=== PATIENT | female | born 1975 | race Caucasian/White ===

== ENCOUNTER 2016-12-13 19:20 | Emergency (ER) | payer MEDICAID ==
[2016-12-13] MEDS ORDERED: Azithromycin 250 MG Tab PO ONE (19:21)
[2016-12-13] MEDS ORDERED: methylPREDNISolone Sodium Succinate 125 MG/2 ML SDV IM ONE (19:21)
--- NOTE | 2016-12-13 23:49 | ER ---
CHIEF COMPLAINT: Sore throat. HISTORY OF PRESENT ILLNESS: Clary is a 41-year-old female, who presents to the emergency room with complaints of sore throat. She states that she was having some difficulty swallowing. She does note some bumps on her tongue as well. Does state that she has not had any other cold-like symptoms. She is questioning whether or not she has thrush at this point in time. PAST MEDICAL HISTORY: CURRENT MEDICATIONS: Include: 1. Viibryd 20 mg p.o. daily. 2. Valium 5 mg in the morning. 3. Valium 10 mg in the evening. 4. Ambien 5 mg at bedtime. 5. Flexeril 10 mg as needed. ALLERGIES: INCLUDE TRAZODONE AND AMOXICILLIN. PHYSICAL EXAMINATION: VITAL SIGNS: Blood pressure 121/75, temperature 98.5, pulse 94, and respirations 18. GENERAL: Pleasant and cooperative female. She is sitting comfortably on chair, does not really appear to be in any distress at this point in time. HEENT: Head is normocephalic and atraumatic. Ear canals are clear. There is some ceruminosis present bilaterally; otherwise, tympanic membranes are intact. Nasal mucosa is pink and moist. Oral mucosa is pink and moist. She did have some exudate in the posterior pharynx. There was some mild erythema. I do not see any signs of thrush presently. Tongue appears normal. NECK: Supple. Trachea is midline. No lymphadenopathy is noted. LUNGS: Clear to auscultation. Denied any adventitious sounds. No wheezes, rhonchi, or rales. ASSESSMENT: ACUTE PHARYNGITIS. PLAN: Solu-Medrol 125 mg for discomfort and inflammation along with we will have her take azithromycin 250 mg 2 tablets at night, one tablet days 2 through 5. She may use [id number] Chloraseptic spray. Recommended she drinks plenty of water, keep mouth moist. If symptoms worsen or return or get worsen, she is to return for further evaluation. The patient will be discharged at this time. THERESA /[id number]
[2016-12-14 01:47] VITALS: BP 121/75
== END 2016-12-13 20:05 | disposition home or self-care (01) ==
LOC: CC.ED 19:20
DX: J02.9 Acute pharyngitis, unspecified (principal); Z88.1 Allergy status to other antibiotic agents; Z88.8 Allergy status to other drugs, medicaments and biological substances
CPT/HCPCS: 96372; 99282; A9270-GY; J2930

== ENCOUNTER 2017-04-09 14:41 | Emergency (ER) | payer MEDICAID ==
--- NOTE | 2017-04-09 14:46 | EDM.PDOC ---
ED HPI GENERAL MEDICAL PROBLEM - General Chief Complaint: General Stated Complaint: chest discomfort Time Seen by Provider: 04/09/17 14:44 Source of Information: Reports: Patient History Limitations: Reports: No Limitations - History of Present Illness INITIAL COMMENTS - FREE TEXT/NARRATIVE: This patient is a 41 year old female that presents to the ER. Patient reports that for the past 2 days she has had chest pain, lower back pain. She reports that she has also been anxious, but this does not feel like any panic attacks. 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 She reports that when she does lift items that her chest and back hurt worse. The patient called ahead and said she would come to the ER because she was concerned it was her heart. The patient is fully alert and oriented. Patient denies porter, dizziness, n , v, d, f, soa, urinary/bowel changes. She does report mild generalized abdominal pain. The patient does not appear to be in acute distress. I have ordered cardiac labs, CXR, EKG, Urine. Onset Date: 04/07/17 Duration: Day(s): (2) Location: Reports: Chest Severity: Mild Improves with: Reports: None Worsens with: Reports: Movement Associated Symptoms: Reports: Chest Pain. Denies: Confusion, Cough, cough w sputum, Diaphoresis, Fever/Chills, Headaches, Loss of Appetite, Malaise, Nausea/ Vomiting, Rash, Seizure, Shortness of Breath, Syncope, Weakness Upper Chest Pain Score (Numeric/FACES): 9 - Related Data Allergies Allergy/AdvReac Type Severity Reaction Status Date / Time amoxicillin Allergy Hives Verified 04/09/17 14:46 trazodone Allergy Chest Pain Verified 04/09/17 14:46 Home Meds: Home Meds Vilazodone [Viibryd] 20 mg PO DAILY 04/07/13 [History] Acetaminophen [Tylenol] 325 mg PO Q4HR PRN 10/16/13 [History] Ibuprofen [Advil Migraine] 200 mg PO Q6HR PRN 10/16/13 [History] Zolpidem [Ambien] 5 mg PO BEDTIME PRN 10/24/14 [History] Cyclobenzaprine [Flexeril] 10 mg PO Q8H PRN 12/14/16 [History] ClonazePAM [KlonoPIN] 0.5 mg PO TID PRN 04/09/17 [History] Past Medical History - Past Health History Medical/Surgical History: Denies Medical/Surgical History Other HEENT History: MIGRAINES Other Gastrointestinal History: currently being treated for UTI Other OB/BYN History: CUSTS, 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 Neurological History: Reports: Migraines Psychiatric History: Reports: Anxiety, Depression - Past Surgical History Other HEENT Surgeries/Procedures: rotten teeth Social & Family History - Family History Family Medical History: Noncontributory - Tobacco Use Smoking Status *Q: Current Every Day Smoker Years of Tobacco use: 15 Packs/Tins Daily: 1 Used Tobacco, but Quit: No - Caffeine Use Caffeine Use: Reports: None - Alcohol Use Days Per Week of Alcohol Use: 0 - Recreational Drug Use Recreational Drug Use: No - Living Situation & Occupation Living situation: Reports: Occupation: Unemployed ED ROS GENERAL - Review of Systems Review Of Systems: See Below Constitutional: Reports: No Symptoms HEENT: Reports: No Symptoms Respiratory: Reports: No Symptoms Cardiovascular: Reports: Chest Pain. Denies: Lightheadedness, Palpitations, Syncope Endocrine: Reports: No Symptoms GI/Abdominal: Reports: Abdominal Pain : Reports: No Symptoms Musculoskeletal: Reports: Back Pain Skin: Reports: No Symptoms Neurological: Reports: No Symptoms Psychiatric: Reports: Anxiety Hematologic/Lymphatic: Reports: No Symptoms Immunologic: Reports: No Symptoms ED EXAM, GENERAL - Physical Exam Exam: See Below Exam Limited By: No Limitations General Appearance: Alert, WD/WN, No Apparent Distress, Anxious Eye Exam: Bilateral Eye: Normal Inspection Ears: Normal External Exam Ear Exam: Bilateral Ear: Auricle Normal Nose: Normal Inspection Throat/Mouth: Normal Inspection, Normal Lips, Normal Teeth (some decay), Normal Gums, Normal Oropharynx, Normal Voice, No Airway Compromise Head: Atraumatic, Normocephalic Neck: Normal Inspection, Supple, Non-Tender, Full Range of Motion Respiratory/Chest: No Respiratory Distress, Lungs Clear, Normal Breath Sounds, No Accessory Muscle Use, Chest Non-Tender Cardiovascular: Normal Peripheral Pulses, Regular Rate, Rhythm, No Edema, No Gallop, No JVD, No Murmur, No Rub Peripheral Pulses: 2+: Radial (L), Radial (R), Posterior Tibial (L), Posterior Tibial (R) GI/Abdominal: Normal Bowel Sounds, Soft, No Organomegaly, No Distention, No Abnormal Bruit, No Mass, Pelvis Stable, Tender (mild generalized. ) Back Exam: Normal Inspection, Full Range of Motion, CVA Tenderness (L), CVA Tenderness (R), Paraspinal Tenderness. No: Decreased Range of Motion, Muscle Spasm, Vertebral Tenderness Extremities: Normal Inspection, Normal Range of Motion, Non-Tender, No Pedal Edema, Normal Capillary Refill Neurological: Alert, Oriented Psychiatric: Normal Mood, Anxious Skin Exam: Warm, Dry, Intact, Normal Color, No Rash Lymphatic: No Adenopathy EKG INTERPRETATION EKG Date: 04/09/17 Time: 14:48 Rhythm: NSR Rate (Beats/Min): 86 [place]: Normal P-Wave: Present QRS: Normal ST-T: Normal QT: Normal Comparison: NA - No Prior EKG Course - Vital Signs Last Recorded V/S: Last Vital Signs Temp 97.2 F 04/09/17 14:42 Pulse 85 04/09/17 14:42 Resp 20 04/09/17 14:42 BP 130/84 04/09/17 14:42 Pulse Ox 100 04/09/17 14:42 - Orders/Labs/Meds Orders: Active Orders 24 hr Category Date Time Status Chest 2V [CR] Stat Exams 04/09/17 14:24 Taken Labs: Laboratory Tests 04/09/17 04/09/17 04/09/17 Range/Units 14:50 14:50 14:58 WBC 6.6 (5.0-10.0) 10^3/uL RBC 3.83 L (4.00-5.50) 10^6/uL Hgb 11.8 L (12.0-16.0) g/dL Hct 35.2 L (37.0-47.0) % MCV 91.9 (82.0-94.0) fL MCH 30.8 (27.0-32.0) pg MCHC 33.5 (33.0-38.0) g/dL RDW Coeff of [place] 12.7 (11.0-15.0) % Plt Count 330 (150-400) 10^3/uL Neut % (Auto) 54.6 (35-85) % Lymph % (Auto) 38.8 (10-55) % [place] % (Auto) 5.2 (0-16) % Eos % (Auto) 0.9 (0-5) % Baso % (Auto) 0.5 (0-3) % Neut # (Auto) 3.58 (1.80-7.00) 10^3/uL Lymph # (Auto) 2.54 (1.00-4.80) 10^3/uL [place] # (Auto) 0.34 (0.00-0.80) 10^3/uL Eos # (Auto) 0.06 (0.00-0.45) 10^3/uL Baso # (Auto) 0.03 10^3/uL Sodium 144 (136-145) mEq/L Potassium 3.1 L (3.5-5.0) mEq/L Chloride 108 H (98-106) mEq/L Carbon Dioxide 25 (21-32) mmol/L BUN 9 (7-18) mg/dL Creatinine 1.0 (0.6-1.0) mg/dL Est Cr Clr Drug Dosing 71.57 mL/min Estimated GFR (MDRD) > 60 (>=60) mL/min Glucose 93 (75-99) mg/dL Calcium 8.4 (8.4-10.1) mg/dL Total Bilirubin 0.2 (0.0-1.0) mg/dL AST 18 (15-37) U/L ALT 23 (12-78) U/L Alkaline Phosphatase 78 (46-116) U/L Creatine Kinase 137 (21-215) U/L Troponin I < 0.017 (0.00-0.06) ng/mL Total Protein 7.3 (6.4-8.2) g/dL Albumin 4.1 (3.4-5.0) g/dL Urine Color (YELLOW) Urine Appearance (CLEAR) Urine pH (4.5-8.0) Ur Specific [place] (1.003-1.020) Urine Protein (NEGATIVE) mg/dL Urine Glucose (UA) (NEGATIVE) mg/dL Urine Ketones (NEGATIVE) mg/dL Urine Occult Blood (NEGATIVE) Urine Nitrite (NEGATIVE) Urine Bilirubin (NEGATIVE) Urine Urobilinogen (0.2-1.0) EU/dL Ur Leukocyte Esterase (NEGATIVE) Urine RBC (0-5) /HPF Urine WBC (0-5) /HPF Ur Squamous Epith Cells (NOT SEEN) /HPF Urine Bacteria (NOT SEEN) /HPF Urine HCG, Qual Negative 04/09/17 Range/Units 14:58 WBC (5.0-10.0) 10^3/uL RBC (4.00-5.50) 10^6/uL Hgb (12.0-16.0) g/dL Hct (37.0-47.0) % MCV (82.0-94.0) fL MCH (27.0-32.0) pg MCHC (33.0-38.0) g/dL RDW Coeff of [place] (11.0-15.0) % Plt Count (150-400) 10^3/uL Neut % (Auto) (35-85) % Lymph % (Auto) (10-55) % [place] % (Auto) (0-16) % Eos % (Auto) (0-5) % Baso % (Auto) (0-3) % Neut # (Auto) (1.80-7.00) 10^3/uL Lymph # (Auto) (1.00-4.80) 10^3/uL [place] # (Auto) (0.00-0.80) 10^3/uL Eos # (Auto) (0.00-0.45) 10^3/uL Baso # (Auto) 10^3/uL Sodium (136-145) mEq/L Potassium (3.5-5.0) mEq/L Chloride (98-106) mEq/L Carbon Dioxide (21-32) mmol/L BUN (7-18) mg/dL Creatinine (0.6-1.0) mg/dL Est Cr Clr Drug Dosing mL/min Estimated GFR (MDRD) (>=60) mL/min Glucose (75-99) mg/dL Calcium (8.4-10.1) mg/dL Total Bilirubin (0.0-1.0) mg/dL AST (15-37) U/L ALT (12-78) U/L Alkaline Phosphatase (46-116) U/L Creatine Kinase (21-215) U/L Troponin I (0.00-0.06) ng/mL Total Protein (6.4-8.2) g/dL Albumin (3.4-5.0) g/dL Urine Color Yellow (YELLOW) Urine Appearance Clear (CLEAR) Urine pH 6.0 (4.5-8.0) Ur Specific [place] 1.010 (1.003-1.020) Urine Protein Negative (NEGATIVE) mg/dL Urine Glucose (UA) Negative (NEGATIVE) mg/dL Urine Ketones Negative (NEGATIVE) mg/dL Urine Occult Blood Negative (NEGATIVE) Urine Nitrite Negative (NEGATIVE) Urine Bilirubin Negative (NEGATIVE) Urine Urobilinogen 0.2 (0.2-1.0) EU/dL Ur Leukocyte Esterase Negative (NEGATIVE) Urine RBC Not seen (0-5) /HPF Urine WBC Not seen (0-5) /HPF Ur Squamous Epith Cells Moderate H (NOT SEEN) /HPF Urine Bacteria Few H (NOT SEEN) /HPF Urine HCG, Qual Meds: Medications Discontinued Medications Generic Name Dose Route Start Last Admin Trade Name Freq PRN Reason Stop Dose Admin Hydrocodone Bitart/Acetaminophen 1 tab 04/09/17 15:12 [place] 325-5 Mg PO 04/09/17 15:13 ONETIME ONE Potassium Chloride 40 meq 04/09/17 15:12 Klor-Con 10 PO 04/09/17 15:13 ONETIME ONE - Radiology Interpretation Free Text/Narrative:: CXR: No infiltrate, no pulmonary edema, no cardiomegaly. Departure - Departure Time of Disposition: 15:14 Disposition: Home, Self-Care 01 Condition: Good Clinical Impression: Atypical chest pain, Hypokalemia - Discharge Information Instructions: Nonspecific Chest Pain, [id number], Hypokalemia Forms: ED Department Discharge Additional Instructions: Followup with your primary care provider Return to the ER for emergencies Potassium Chloride 20meq 1 pill once a day #30 no refill Increase fluids Eat Bananas - My Orders Last 24 Hours: My Active Orders 04/09/17 14:24 Chest 2V [CR] Stat - Assessment/Plan Last 24 Hours: My Active Orders 04/09/17 14:24 Chest 2V [CR] Stat Plan: PLEASE SEE RN NOTE FOR PFSH.
[2017-04-09 14:56] VITALS: BP 130/84
[2017-04-09 15:11] LABS: CHLORIDE,CL 108 mEq/L (98-106); SODIUM,NA 144 mEq/L (136-145)
[2017-04-09] MEDS ORDERED: Acetaminophen/HYDROcodone 325-5 MG Tab PO ONE (15:12)
[2017-04-09] MEDS ORDERED: Potassium Chloride 10 MEQ Tab.ER PO ONE (15:12)
== END 2017-04-09 15:26 | disposition home or self-care (01) ==
LOC: CC.ED 14:41
DX: R07.89 Other chest pain (principal); E87.6 Hypokalemia; Z88.1 Allergy status to other antibiotic agents; Z88.5 Allergy status to narcotic agent; F41.9 Anxiety disorder, unspecified; F32.9 Major depressive disorder, single episode, unspecified; F17.210 Nicotine dependence, cigarettes, uncomplicated
CPT/HCPCS: 36415; 71020; 80053; 81001; 81025; 82550; 84484; 85025; 93005; 99284; A9270

== ENCOUNTER 2017-09-18 09:04 | Emergency (ER) | payer MEDICAID ==
[2017-09-18] MEDS ORDERED: Ketorolac 60 MG/2 ML SDV IM ONE (09:22)
--- NOTE | 2017-09-18 09:28 | EDM.PDOC ---
ED HPI GENERAL MEDICAL PROBLEM - General Chief Complaint: Headache Stated Complaint: neck pain Time Seen by Provider: 09/18/17 09:05 Source of Information: Reports: Patient, Old Records History Limitations: Reports: No Limitations - History of Present Illness Onset: Gradual Onset Date: 09/16/17 Duration: Other (no trauma, reports she woke up with muscle pain in her RIGHT neck) Quality: Reports: Ache, Throbbing Severity: Moderate Associated Symptoms: Reports: No Other Symptoms - Related Data Allergies Allergy/AdvReac Type Severity Reaction Status Date / Time amoxicillin Allergy Hives Verified 09/18/17 09:12 trazodone Allergy Chest Pain Verified 09/18/17 09:12 Home Meds: Home Meds Vilazodone [Viibryd] 20 mg PO DAILY 04/07/13 [History] Acetaminophen [Tylenol] 325 mg PO Q4HR PRN 10/16/13 [History] Ibuprofen [Advil Migraine] 200 mg PO Q6HR PRN 10/16/13 [History] Zolpidem [Ambien] 5 mg PO BEDTIME PRN 10/24/14 [History] Cyclobenzaprine [Flexeril] 10 mg PO Q8H PRN 12/14/16 [History] ClonazePAM [KlonoPIN] 0.5 mg PO TID PRN 04/09/17 [History] Gabapentin [Neurontin] 300 mg PO TID 09/18/17 [History] Past Medical History - Past Health History Medical/Surgical History: Denies Medical/Surgical History Other HEENT History: MIGRAINES Other Gastrointestinal History: currently being treated for UTI Other OB/BYN History: CUSTS, 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 Neurological History: Reports: Migraines Psychiatric History: Reports: Anxiety, Depression - Past Surgical History Other HEENT Surgeries/Procedures: rotten teeth Social & Family History - Family History Family Medical History: Noncontributory - Caffeine Use Caffeine Use: Reports: None - Living Situation & Occupation Living situation: Reports: Occupation: Unemployed ED ROS GENERAL - Review of Systems Review Of Systems: See Below Constitutional: Reports: No Symptoms HEENT: Reports: No Symptoms Respiratory: Reports: No Symptoms Cardiovascular: Reports: No Symptoms GI/Abdominal: Reports: No Symptoms Musculoskeletal: Reports: Neck Pain Skin: Reports: No Symptoms Neurological: Reports: No Symptoms ED EXAM, GENERAL - Physical Exam Exam: See Below Exam Limited By: No Limitations General Appearance: Alert, WD/WN, No Apparent Distress Head: Atraumatic, Normocephalic Neck: Other (palpable spasm to the RIGHT posterior neck. no stepoff, deformity, evidence of trauma) Respiratory/Chest: No Respiratory Distress, Lungs Clear, Normal Breath Sounds, No Accessory Muscle Use, Chest Non-Tender Cardiovascular: Normal Peripheral Pulses, Regular Rate, Rhythm, No Edema, No Gallop, No JVD, No Murmur, No Rub Back Exam: Normal Inspection, Full Range of Motion, NT Extremities: Normal Inspection, Normal Range of Motion, Non-Tender, Normal Capillary Refill, No Pedal Edema Neurological: Alert, Oriented, CN II-XII Intact, Normal Cognition, Normal Gait, No Motor/Sensory Deficits Course - Orders/Labs/Meds Meds: Medications Discontinued Medications Generic Name Dose Route Start Last Admin Trade Name Diego PRN Reason Stop Dose Admin Ketorolac Tromethamine 60 mg 09/18/17 09:22 09/18/17 09:27 Toradol IM 09/18/17 09:23 60 mg ONETIME ONE Administration Departure - Departure Time of Disposition: 09:25 Disposition: Home, Self-Care 01 Clinical Impression: Neck pain - Discharge Information Instructions: Musculoskeletal Pain Forms: ED Department Discharge - Assessment/Plan Assessment:: Exam reveals a muscle spasm in the RIGHT posterior neck. the patient is currently Rx for cyclobenzaprine and is taking them regularly at home. She repeatedly requests narcotic pain medication here in the ED. I counseled her that narcotics are not given in the ED without an objective finding. She is given 1x dose of IM toradol which somewhat ameliorates her pain. She is advised to rest, hydrate, take all home meds as directed, fu with PCP in 3-5 days for repeat exam, go to closest ED if change or worse. Patient reports understanding and agreement with plan. DC home stable.
[2017-09-18 10:19] VITALS: BP 98/68
== END 2017-09-18 09:35 | disposition home or self-care (01) ==
LOC: CC.ED 09:04
DX: M62.838 Other muscle spasm (principal); M54.2 Cervicalgia; Z88.1 Allergy status to other antibiotic agents; Z88.8 Allergy status to other drugs, medicaments and biological substances; Z79.899 Other long term (current) drug therapy
CPT/HCPCS: 96372; 99283; J1885

== ENCOUNTER 2018-10-20 19:13 | Emergency (ER) | payer MEDICAID ==
[2018-10-20 19:17] VITALS: BP 108/77
--- NOTE | 2018-10-20 19:40 | EDM.PDOC ---
ED HPI GENERAL MEDICAL PROBLEM - General Chief Complaint: ENT Problem Stated Complaint: SORE THROAT Time Seen by Provider: 10/20/18 19:14 Source of Information: Reports: Patient History Limitations: Reports: No Limitations - History of Present Illness INITIAL COMMENTS - FREE TEXT/NARRATIVE: This patient is a 42 year old female that presents to the ER for nonemergency. Patient reports for 1 week having burning sensation in her throat and at times she feels like food gets stuck when eating. Patient denies injury, porter, dizziness , n, v, d, f, oral rash, oral sores, cp, soa, abd pain, chest burning sensation. Onset Date: 10/13/18 Duration: Week(s): (1) Location: Reports: Other (sore throat) Quality: Reports: Other (burning) Severity: Mild Worsens with: Reports: Eating Associated Symptoms: Denies: Confusion, Chest Pain, Cough, cough w sputum, Diaphoresis, Fever/Chills, Headaches, Loss of Appetite, Malaise, Nausea/Vomiting , Rash, Seizure, Shortness of Breath, Syncope, Weakness Throat Pain Score (Numeric/FACES): 7 - Related Data Allergies Allergy/AdvReac Type Severity Reaction Status Date / Time amoxicillin Allergy Hives Verified 10/20/18 19:17 trazodone Allergy Chest Pain Verified 10/20/18 19:17 Home Meds: Home Meds Acetaminophen [Tylenol] 325 mg PO Q4HR PRN 10/16/13 [History] Ibuprofen [Advil Migraine] 200 mg PO Q6HR PRN 10/16/13 [History] Zolpidem [Ambien] 5 mg PO BEDTIME PRN 10/24/14 [History] Cyclobenzaprine [Flexeril] 10 mg PO Q8H PRN 12/14/16 [History] ClonazePAM [KlonoPIN] 0.5 mg PO TID PRN 04/09/17 [History] Gabapentin [Neurontin] 300 mg PO TID 09/18/17 [History] Venlafaxine HCl [Venlafaxine ER] 150 mg PO DAILY 10/20/18 [History] Past Medical History - Past Health History Medical/Surgical History: Denies Medical/Surgical History Other HEENT History: MIGRAINES Gastrointestinal History: Reports: None Other Gastrointestinal History: currently being treated for UTI Genitourinary History: Reports: None 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, 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 Musculoskeletal History: Reports: Back Pain, Chronic Neurological History: Reports: Migraines Psychiatric History: Reports: Anxiety, Depression - Past Surgical History HEENT Surgical History: Reports: Other (See Below) Other HEENT Surgeries/Procedures: rotten teeth GI Surgical History: Reports: Cholecystectomy Female Surgical History: Reports: Tubal Ligation Neurological Surgical History: Reports: None Musculoskeletal Surgical History: Reports: Other (See Below) Other Musculoskeletal Surgeries/Procedures:: tendon surgery to right ankle Social & Family History - Family History Family Medical History: Noncontributory - Tobacco Use Smoking Status *Q: Current Every Day Smoker Years of Tobacco use: 21 Packs/Tins Daily: 1 - Caffeine Use Caffeine Use: Reports: Soda - Recreational Drug Use Recreational Drug Use: No - Living Situation & Occupation Living situation: Reports: Occupation: Unemployed ED ROS ENT - Review of Systems Review Of Systems: See Below Constitutional: Reports: No Symptoms HEENT: Reports: Throat Pain (burning, food feels like gets stuck sometimes when eating. ). Denies: Dental Pain, Ear Discharge, Ear Pain, Eye Discharge, Hearing Loss, Nosebleed, Nose Pain, Rhinitis, Sinus Problem, Vertigo, Vision Change Respiratory: Reports: No Symptoms Cardiovascular: Reports: No Symptoms Endocrine: Reports: No Symptoms GI/Abdominal: Reports: No Symptoms : Reports: No Symptoms Musculoskeletal: Reports: No Symptoms Skin: Reports: No Symptoms Neurological: Reports: No Symptoms Psychiatric: Reports: No Symptoms Hematologic/Lymphatic: Reports: No Symptoms Immunologic: Reports: No Symptoms ED EXAM, ENT - Physical Exam Exam: See Below Exam Limited By: No Limitations General Appearance: Alert, WD/WN, No Apparent Distress Eye Exam: Bilateral Eye: Normal Inspection, PERRL Ears: Normal External Exam, Normal Canal, Hearing Grossly Normal, Normal TMs Nose: Normal Inspection, Normal Mucousa, No Blood Mouth/Throat: Normal Inspection, Normal Gums, Normal Lips, Normal Teeth, Pharyngeal Erythema, Throat Pain. No: Bleeding, Dental Abcess, Dental Pain, Dental Tenderness, Dental Trauma, Drooling, Dry Mucous Membrane, Gum Swelling, Hoarse Voice, Lip Swelling, Lip Ulcers, Muffled Voice, Oral Ulcers, Perioral Cyanosis, Peritonsillar Mass, Throat Swelling, Tongue Swelling, Tonsillar Erythema, Tonsillar Exudates, Tonsillar Swelling, Trismus, Uvular Deviation, Uvular Edema Head: Atraumatic, Normocephalic Neck: Normal Inspection, Supple, Non-Tender, Full Range of Motion, Tender Midline. No: Limited Range of Motion, Lymphadenopathy (L), Lymphadenopathy (R) , Tender Lateral, Thyromegaly Respiratory/Chest: No Respiratory Distress, Lungs Clear, Normal Breath Sounds, No Accessory Muscle Use, Chest Non-Tender Cardiovascular: Normal Peripheral Pulses, Regular Rate, Rhythm, No Edema, No Gallop, No JVD, No Murmur, No Rub Extremities: Normal Inspection, Normal Range of Motion, Non-Tender, No Pedal Edema, Normal Capillary Refill Neurological: Alert, Oriented, Normal Cognition, Normal Gait, No Motor/Sensory Deficits Psychiatric: Normal Affect, Normal Mood, Other Skin: Warm, Intact, Normal Color, No Rash Lymphatic: No Adenopathy Course - Vital Signs Last Recorded V/S: Last Vital Signs Temp 99.6 F 10/20/18 19:14 Pulse 102 H 10/20/18 19:14 Resp 18 10/20/18 19:14 BP 108/77 10/20/18 19:14 Pulse Ox 97 10/20/18 19:14 Departure - Departure Time of Disposition: 20:05 Disposition: Home, Self-Care 01 Condition: Good Clinical Impression: Sore throat - Discharge Information *PRESCRIPTION DRUG MONITORING PROGRAM REVIEWED*: No *COPY OF PRESCRIPTION DRUG MONITORING REPORT IN PATIENT ODILIA: No Instructions: Sore Throat, [id number] Forms: ED Department Discharge Additional Instructions: Followup with primary care provider Return to the ER for worsening of condition or any emergent concerns Increase fluids May use over the counter Chloraseptic as needed Tylenol or IbuProfen as needed for pain - Assessment/Plan Plan: PLEASE SEE RN NOTE FOR PFSH.
== END 2018-10-20 20:17 | disposition home or self-care (01) ==
LOC: CC.ED 19:13
DX: J02.9 Acute pharyngitis, unspecified (principal); F41.9 Anxiety disorder, unspecified; F32.9 Major depressive disorder, single episode, unspecified; F17.210 Nicotine dependence, cigarettes, uncomplicated; Z88.1 Allergy status to other antibiotic agents; Z88.5 Allergy status to narcotic agent; Z79.899 Other long term (current) drug therapy
CPT/HCPCS: 87430; 99283

== ENCOUNTER 2019-12-28 14:05 | Emergency (ER) | payer MEDICAID, OTHER ==
[2019-12-28] MEDS ORDERED: Ondansetron 4 MG Tab.DIS PO ONE ×2 (14:06→16:06)
--- NOTE | 2019-12-28 14:26 | EDM.PDOC ---
ED HPI GENERAL MEDICAL PROBLEM - General Chief Complaint: Headache Stated Complaint: Headache Time Seen by Provider: 12/28/19 14:15 Source of Information: Reports: Patient History Limitations: Reports: No Limitations - History of Present Illness INITIAL COMMENTS - FREE TEXT/NARRATIVE: Patient reports that last night she started with a tension headache that she normally gets. She reports then today she was on a ladder and was up on the lift on the second step a couple of feet and lost footing and fell backwards. Patient reports that she landed on her back and back of head. Patient reports that when she fell she was dazed, dizzy, and nauseated. She reports that she vomited x1. She reports that her tension headache was now worse and that she came to the ER because of the vomiting. The patient is alert and oriented. She reports having back of the headache, nausea, vomiting x1, dizziness, neck pain, central upper back pain. Denies urinary/bowel incontinence, known loc, vision changes. Onset: Today Onset Date: 12/28/19 Onset Time: 14:00 Duration: Minutes: (20) Location: Reports: Head, Neck, Back Severity: Moderate Improves with: Reports: None Worsens with: Reports: None Associated Symptoms: Reports: Headaches, Nausea/Vomiting. Denies: Confusion, Chest Pain, Cough, cough w sputum, Diaphoresis, Fever/Chills, Loss of Appetite, Malaise, Rash, Seizure, Shortness of Breath, Syncope, Weakness Occipital Head Pain Score (Numeric/FACES): 8 - Related Data Allergies Allergy/AdvReac Type Severity Reaction Status Date / Time amoxicillin Allergy Hives Verified 12/28/19 14:14 trazodone Allergy Chest Pain Verified 12/28/19 14:14 Home Meds: Home Meds Acetaminophen [Tylenol] 325 mg PO Q4HR PRN 10/16/13 [History] Ibuprofen [Advil Migraine] 800 mg PO Q6HR PRN 10/16/13 [History] Zolpidem [Ambien] 10 mg PO BEDTIME PRN 10/24/14 [History] Cyclobenzaprine [Flexeril] 10 mg PO BID PRN 12/14/16 [History] busPIRone [Buspar] 20 mg PO BID 12/28/19 [History] hydrOXYzine HCL [Hydroxyzine HCl] 50 mg PO TID PRN 12/28/19 [History] Past Medical History - Past Health History Medical/Surgical History: Denies Medical/Surgical History Other HEENT History: MIGRAINES Gastrointestinal History: Reports: None Other Gastrointestinal History: currently being treated for UTI Genitourinary History: Reports: None 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: CUSTS, 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 Musculoskeletal History: Reports: Back Pain, Chronic Neurological History: Reports: Migraines Psychiatric History: Reports: Anxiety, Depression - Past Surgical History HEENT Surgical History: Reports: Other (See Below) Other HEENT Surgeries/Procedures: rotten teeth GI Surgical History: Reports: Cholecystectomy Female Surgical History: Reports: Tubal Ligation Neurological Surgical History: Reports: None Musculoskeletal Surgical History: Reports: Other (See Below) Other Musculoskeletal Surgeries/Procedures:: tendon surgery to right ankle Social & Family History - Family History Family Medical History: Noncontributory - Caffeine Use Caffeine Use: Reports: Soda - Living Situation & Occupation Living situation: Reports: Occupation: Unemployed ED ROS GENERAL - Review of Systems Review Of Systems: See Below Constitutional: Reports: No Symptoms HEENT: Reports: No Symptoms Respiratory: Reports: No Symptoms Cardiovascular: Reports: No Symptoms Endocrine: Reports: No Symptoms GI/Abdominal: Reports: Nausea, Vomiting (x1) : Reports: No Symptoms Musculoskeletal: Reports: Neck Pain, Back Pain (upper and mid) Skin: Reports: No Symptoms Neurological: Reports: Dizziness, Headache. Denies: Confusion, Numbness, Pre- Existing Deficit, Seizure, Syncope, Tingling, Tremors, Trouble Speaking, Difficulty Walking, Weakness, Change in Speech, Gait Disturbance Psychiatric: Reports: No Symptoms Hematologic/Lymphatic: Reports: No Symptoms Immunologic: Reports: No Symptoms ED EXAM, HEAD INJURY - Physical Exam Exam: See Below Exam Limited By: No Limitations General Appearance: Alert, WD/WN, No Apparent Distress, Anxious Head: Atraumatic, Normocephalic. No: Scalp Lacerations, Scalp Swelling, Scalp Abrasions, Scalp Ecchymosis, Scalp Hematoma, Scalp Tenderness, Active Bleeding, Lizarraga's Sign, Flap, Facial Abrasions, Facial Ecchymosis, Facial Lacerations, Facial Swelling, Sinus Tenderness, Facial Tenderness, Raccoon Eyes Nexus Criteria: Posterior, Midline Cervical Tenderness. No: Evidence of Intoxication, Altered Level of Consciousness, Focal Neurological Deficit, Painful Distraction Injuries Eyes: Bilateral Eye: EOMI, Normal Inspection, PERRL Ears: Normal External Exam, Normal Canal, Hearing Grossly Normal, Normal TMs Nose: Normal Inspection, Normal Mucousa, No Blood Throat/Mouth: Normal Inspection, Normal Lips, Normal Teeth, Normal Gums, Normal Oropharynx, Normal Voice, No Airway Compromise Neck: Full Range of Motion, Normal Alignment, Normal Inspection, Painful Range of Motion, Paraspinous Muscle Tender, Spinous Processes Tender, Tender Midline, Other (C-Collar applied. No step offs. ). No: Limited Range of Motion, Stiff Neck, Tender Lateral Respiratory: No Respiratory Distress, Lungs Clear, Normal Breath Sounds, No Accessory Muscle Use, Chest Non-Tender Cardiovascular: Normal Peripheral Pulses, Regular Rate, Rhythm, No Edema, No Gallop, No JVD, No Murmur, No Rub GI/Abdominal Exam: Soft, Non-Tender Back Exam: Normal Inspection, Full Range of Motion Extremities: Normal Inspection, Normal Range of Motion, Non-Tender, No Pedal Edema, Normal Capillary Refill Neurologic: No Motor/Sensory Deficits, Alert, Normal Mood/Affect, Oriented x 3 Skin: Normal Color, Warm/Dry - Neel Coma Score Best Eye Response ([place]): (4) Open Spontaneously Best Verbal Response ([place]): (5) Oriented Best Motor Response ([place]): (6) Obeys Commands Course - Vital Signs Last Recorded V/S: Last Vital Signs Temp 98 F 12/28/19 14:19 Pulse 113 H 12/28/19 14:19 Resp 18 12/28/19 14:19 BP 144/79 H 12/28/19 14:19 Pulse Ox 99 12/28/19 14:19 - Orders/Labs/Meds Orders: Active Orders 24 hr Category Date Time Status C Collar Applied [Spinal Immobilization] [RC] Care 12/28/19 14:27 Active ASDIRECTED Cervical Spine wo Cont [CT] Stat Exams 12/28/19 14:25 Taken Head wo Cont [CT] Stat Exams 12/28/19 14:25 Ordered Thoracic Spine 3V [CR] Stat Exams 12/28/19 14:26 Taken Ondansetron [Take Home: Ondansetron ODT 4 MG, 2 Tab Med 12/28/19 16:06 Once Pack] 2 packet PO ONETIME ONE Ondansetron [Zofran ODT] Med 12/28/19 16:06 Once 4 mg PO ONETIME ONE Medication Orders Ondansetron HCl (Zofran Odt) 4 mg PO ONETIME ONE Stop: 12/28/19 16:07 Meds: Medications Generic Name Dose Route Start Last Admin Trade Name Diego PRN Reason Stop Dose Admin Ondansetron HCl 4 mg 12/28/19 16:06 Zofran Odt PO 12/28/19 16:07 ONETIME ONE - Radiology Interpretation Free Text/Narrative:: Thoracic Xray: No fractures seen. Head/Cervical CT: No acute findings CT Results Date: 12/28/19 CT Results Time: 15:55 - Re-Assessments/Exams Free Text/Narrative Re-Assessment/Exam: 12/28/19 16:07 Discussed with patient about after head injury with LOC and vomiting, no NSAIDs for headache. Discussed Tylenol. Departure - Departure Time of Disposition: 16:02 Disposition: Home, Self-Care 01 Condition: Good Clinical Impression: Head injury due to trauma Qualifiers: Encounter type: initial encounter Qualified Code(s): S09.90XA - Unspecified injury of head, initial encounter Cervical strain, acute Qualifiers: Encounter type: initial encounter Qualified Code(s): S16.1XXA - Strain of muscle, fascia and tendon at neck level, initial encounter - Discharge Information *PRESCRIPTION DRUG MONITORING PROGRAM REVIEWED*: Not Applicable *COPY OF PRESCRIPTION DRUG MONITORING REPORT IN PATIENT ODILIA: Not Applicable Instructions: Head Injury, Adult, Cervical Sprain Forms: ED Department Discharge Additional Instructions: Followup with your primary care provider Return to the ER for worsening of condition or any emergent concerns Increase fluids Tylenol for pain Go home and rest Zofran 4mg 1 pill every 6 hours as needed for nausea #4 take home Sepsis Event Note (ED) - Focused Exam Vital Signs: Vital Signs Temp Pulse Resp BP Pulse Ox 12/28/19 14:19 98 F 113 H 18 144/79 H 99 - My Orders Last 24 Hours: My Active Orders 12/28/19 14:25 Cervical Spine wo Cont [CT] Stat Head wo Cont [CT] Stat 12/28/19 14:26 Thoracic Spine 3V [CR] Stat 12/28/19 14:27 C Collar Applied [Spinal Immobilization] [RC] ASDIRECTED 12/28/19 16:06 Ondansetron [Take Home: Ondansetron ODT 4 MG, 2 Tab Pack] 2 packet PO ONETIME ONE Ondansetron [Zofran ODT] 4 mg PO ONETIME ONE - Assessment/Plan Last 24 Hours: My Active Orders 12/28/19 14:25 Cervical Spine wo Cont [CT] Stat Head wo Cont [CT] Stat 12/28/19 14:26 Thoracic Spine 3V [CR] Stat 12/28/19 14:27 C Collar Applied [Spinal Immobilization] [RC] ASDIRECTED 12/28/19 16:06 Ondansetron [Take Home: Ondansetron ODT 4 MG, 2 Tab Pack] 2 packet PO ONETIME ONE Ondansetron [Zofran ODT] 4 mg PO ONETIME ONE Plan: PLEASE SEE RN NOTE FOR PFSH
[2019-12-28 14:31] VITALS: BP 144/79; PULSE 113
[2019-12-28] MEDS ORDERED: Acetaminophen 500 MG Tab PO ONE (16:07)
[2019-12-28] MEDS: Take Home: Ondansetron 4 MG Tab.DIS, 2 Tab Pack PO ONE ×2 (16:12→16:13)
== END 2019-12-28 16:20 | disposition home or self-care (01) ==
LOC: CC.ED 14:05
DX: S09.90XA Unspecified injury of head, initial encounter (principal); S16.1XXA Strain of muscle, fascia and tendon at neck level, initial encounter; F41.9 Anxiety disorder, unspecified; F32.9 Major depressive disorder, single episode, unspecified; Z88.1 Allergy status to other antibiotic agents; Z88.5 Allergy status to narcotic agent; Z79.899 Other long term (current) drug therapy; W11.XXXA Fall on and from ladder, initial encounter
CPT/HCPCS: 70450; 72072; 72125; 99284; A9270

== ENCOUNTER 2020-04-23 17:10 | Emergency (ER) | payer MEDICAID ==
[2020-04-23 17:20] VITALS: BP 154/91; PULSE 105
--- NOTE | 2020-04-23 17:59 | EDM.PDOC ---
ED HPI GENERAL MEDICAL PROBLEM - General Chief Complaint: Abdominal Pain Stated Complaint: "I am constipated" Time Seen by Provider: 04/23/20 17:25 Source of Information: Reports: Patient History Limitations: Reports: No Limitations - History of Present Illness INITIAL COMMENTS - FREE TEXT/NARRATIVE: Clary is a 44 year old female who presents to ER with complaints of constipa tion. Does not recall last BM, states has been 1-2 weeks. Feels bloated. No fevers. No nausea or vomiting. Has been able to eat but admits hasn't eaten much as she is already uncomfortable from constipation. Denies back pain or urinary complaints. Has tried miralax, mag citrate and a fleets enema at home without relief. Onset: Gradual Duration: Week(s): Location: Reports: Abdomen Quality: Reports: Ache Severity: Moderate Improves with: Reports: None Worsens with: Reports: None Associated Symptoms: Reports: Cough, Loss of Appetite. Denies: Fever/Chills, Malaise, Nausea/Vomiting, Shortness of Breath, Weakness Treatments CUSTODIAN SUPERVISOR: Reports: Other Medication(s) Other Treatments CUSTODIAN SUPERVISOR: fleets enema, mag citrate and miralax - Related Data Allergies Allergy/AdvReac Type Severity Reaction Status Date / Time amoxicillin Allergy Hives Verified 04/23/20 17:17 trazodone Allergy Chest Pain Verified 04/23/20 17:17 Home Meds: Home Meds Ibuprofen [Advil Migraine] 800 mg PO Q6HR PRN 10/16/13 [History] Zolpidem [Ambien] 10 mg PO BEDTIME PRN 10/24/14 [History] busPIRone [Buspar] 20 mg PO BID 12/28/19 [History] hydrOXYzine HCL [Hydroxyzine HCl] 50 mg PO TID PRN 12/28/19 [History] methocarbamoL [Robaxin-750] 750 mg PO DAILY 04/23/20 [History] polyethylene glycoL 3350 [MiraLAX] 17 gm PO DAILY 04/23/20 [History] Past Medical History - Past Health History Medical/Surgical History: Denies Medical/Surgical History Other HEENT History: MIGRAINES Gastrointestinal History: Reports: None Other Gastrointestinal History: currently being treated for UTI Genitourinary History: Reports: None 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: 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, 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 Musculoskeletal History: Reports: Back Pain, Chronic Neurological History: Reports: Migraines Psychiatric History: Reports: Anxiety, Depression - Past Surgical History HEENT Surgical History: Reports: Other (See Below) Other HEENT Surgeries/Procedures: rotten teeth GI Surgical History: Reports: Cholecystectomy Female Surgical History: Reports: Tubal Ligation Neurological Surgical History: Reports: None Musculoskeletal Surgical History: Reports: Other (See Below) Other Musculoskeletal Surgeries/Procedures:: tendon surgery to right ankle Social & Family History - Family History Family Medical History: No Pertinent Family History - Tobacco Use Tobacco Use Status *Q: Current Every Day Tobacco User Years of Tobacco use: 20 Packs/Tins Daily: 1 - Caffeine Use Caffeine Use: Reports: Soda - Recreational Drug Use Recreational Drug Use: No - Living Situation & Occupation Living situation: Reports: Occupation: Unemployed ED ROS GENERAL - Review of Systems Review Of Systems: See Below Constitutional: Reports: Decreased Appetite. Denies: Fever, Chills, Malaise, Weakness HEENT: Denies: Ear Pain, Sinus Problem, Throat Pain, Vertigo Respiratory: Denies: Shortness of Breath, Cough Cardiovascular: Denies: Chest Pain, Edema, Lightheadedness Endocrine: Denies: Fatigue GI/Abdominal: Reports: Abdominal Pain, Constipation, Decreased Appetite. Denies: Nausea, Vomiting : Reports: No Symptoms Musculoskeletal: Reports: No Symptoms Skin: Reports: No Symptoms Neurological: Reports: No Symptoms ED EXAM, GI/ABD - Physical Exam Exam: See Below Exam Limited By: No Limitations General Appearance: Alert, WD/WN, No Apparent Distress Ears: Normal External Exam, Normal TMs Nose: Normal Inspection, Normal Mucosa, No Blood Throat/Mouth: Normal Inspection, Normal Oropharynx Head: Normocephalic Neck: Normal Inspection, Supple, Non-Tender Respiratory/Chest: No Respiratory Distress, Lungs Clear, Normal Breath Sounds Cardiovascular: Regular Rate, Rhythm GI/Abdominal Exam: Normal Bowel Sounds, Soft, Distended, Tender Extremities: Normal Inspection, No Pedal Edema Neurological: Alert, Oriented Skin Exam: Warm, Dry Course - Vital Signs Last Recorded V/S: Last Vital Signs Temp 99.1 F 04/23/20 17:19 Pulse 105 H 04/23/20 17:19 Resp 20 04/23/20 17:19 BP 154/91 H 04/23/20 17:19 Pulse Ox 98 04/23/20 17:19 - Orders/Labs/Meds Orders: Active Orders 24 hr Category Date Time Status Enema [RC] ASDIRECTED Care 04/23/20 17:53 Active Abdomen 2V AP Flat Upright [CR] Urgent Exams 04/23/20 17:18 Taken - Re-Assessments/Exams Free Text/Narrative Re-Assessment/Exam: 04/23/20 17:30 Flat and upright does show moderate stool, mostly in ascending colon. Rectal exam done, no stool felt in rectum. Will give soap suds enema. 04/23/20 18:34 No results with enema. Patient would like to try meds at home. Discussed laxative and increasing scoops of Miralax tonight and in am. Notify us if no results. Departure - Departure Time of Disposition: 18:35 Disposition: Home, Self-Care 01 Condition: Good Clinical Impression: Constipation - Discharge Information *PRESCRIPTION DRUG MONITORING PROGRAM REVIEWED*: No *COPY OF PRESCRIPTION DRUG MONITORING REPORT IN PATIENT ODILIA: No Instructions: Constipation, Adult Referrals: PCP,Unknown [Primary Care Provider] - Forms: ED Department Discharge Additional Instructions: 1. Push fluids 2. Stool softener/laxatives tonight 3. Increase Miralax scoops until results. 4. Follow up if persisting concerns. Sepsis Event Note (ED) - Evaluation Sepsis Screening Result: No Definite Risk - Focused Exam Vital Signs: Vital Signs Temp Pulse Resp BP Pulse Ox 04/23/20 17:19 99.1 F 105 H 20 154/91 H 98 - My Orders Last 24 Hours: My Active Orders 04/23/20 17:18 Abdomen 2V AP Flat Upright [CR] Urgent 04/23/20 17:53 Enema [RC] ASDIRECTED - Assessment/Plan Last 24 Hours: My Active Orders 04/23/20 17:18 Abdomen 2V AP Flat Upright [CR] Urgent 04/23/20 17:53 Enema [RC] ASDIRECTED
== END 2020-04-23 18:42 | disposition home or self-care (01) ==
LOC: CC.ED 17:10
DX: K59.00 Constipation, unspecified (principal); F41.9 Anxiety disorder, unspecified; F17.210 Nicotine dependence, cigarettes, uncomplicated; Z88.0 Allergy status to penicillin; Z88.5 Allergy status to narcotic agent; Z79.899 Other long term (current) drug therapy
CPT/HCPCS: 74019; 99283-25

== ENCOUNTER 2022-01-09 12:58 | Emergency (ER) | payer MEDICAID ==
[2022-01-09 13:05] VITALS: BP 142/84; PULSE 120
== END 2022-01-09 15:44 | disposition home or self-care (01) ==
LOC: CC.ED 12:58
DX: J06.9 Acute upper respiratory infection, unspecified (principal); Z88.0 Allergy status to penicillin; Z88.8 Allergy status to other drugs, medicaments and biological substances; Z20.822 Contact with and (suspected) exposure to COVID-19
CPT/HCPCS: 99283; U0002

== ENCOUNTER 2022-01-26 15:10 | Emergency (ER) | payer MEDICAID ==
[2022-01-26] MEDS ORDERED: Bacitracin/Neomycin/Polymyxin B Oint 0.9 GM U/D Packet TOP ONE (15:11)
[2022-01-26] MEDS ORDERED: Lidocaine 1% 5 ML VIAL INJECT ONE (15:11)
== END 2022-01-26 16:20 | disposition home or self-care (01) ==
LOC: CC.ED 15:10
DX: S61.211A Laceration without foreign body of left index finger without damage to nail, initial encounter (principal); W26.0XXA Contact with knife, initial encounter
CPT/HCPCS: 12001; 99282; 99283

== ENCOUNTER 2022-05-22 14:42 | Emergency (ER) | payer MEDICAID ==
[2022-05-22 14:48] VITALS: BP 140/78; PULSE 110
[2022-05-22] MEDS: HYDROmorphone 1 MG/ML Syringe SUBCUT ONE (14:54)
[2022-05-22] MEDS: Take Home: Acetaminophen/HYDROcodone 325-5 MG, 2 Tab Pack PO ONE (15:56)
== END 2022-05-22 16:08 | disposition home or self-care (01) ==
LOC: CC.ED 14:42
DX: S52.501A Unspecified fracture of the lower end of right radius, initial encounter for closed fracture (principal); S52.611A Displaced fracture of right ulna styloid process, initial encounter for closed fracture; Z88.0 Allergy status to penicillin; Z79.899 Other long term (current) drug therapy; Z90.49 Acquired absence of other specified parts of digestive tract; W00.0XXA Fall on same level due to ice and snow, initial encounter
CPT/HCPCS: 25605; 73110-RT; 96372; 99283; 99283-25; A9270-GY; J1170

== ENCOUNTER → 2022-06-24 | Day surgery (SDC) | payer MEDICAID ==
[~2022-06-24] MED LIST: Ketamine 200 MG/20 ML MDV ONE; Lactated Ringers 1,000 ML IV SCH; Lidocaine 2% 5 ML SDV ONE; Midazolam 1 MG/ML 2 ML SDV ONE; Phenylephrine 1% 10 MG/ML SDV ONE; fentaNYL 50 MCG/ML SDV ONE
[2022-06-24 15:55] VITALS: BP 110/71; PULSE 85
== END ==
LOC: CC.SDS 09:26
PROVIDERS: ATTEND Family Medicine
DX: Z12.11 Encounter for screening for malignant neoplasm of colon (principal); K29.70 Gastritis, unspecified, without bleeding; K25.9 Gastric ulcer, unspecified as acute or chronic, without hemorrhage or perforation; F17.210 Nicotine dependence, cigarettes, uncomplicated; R63.4 Abnormal weight loss; Z88.0 Allergy status to penicillin; Z88.8 Allergy status to other drugs, medicaments and biological substances; Z79.899 Other long term (current) drug therapy; Z98.890 Other specified postprocedural states; Z68.1 Body mass index [BMI] 19.9 or less, adult
CPT/HCPCS: 43239; 45378; 87081; J2250; J2370; J3010; J7120; J3490

== ENCOUNTER 2023-05-20 10:34 | Emergency (ER) | payer MEDICAID ==
[2023-05-20 10:49] VITALS: BP 119/82; PULSE 90
[2023-05-20 10:50] LABS: BASOPHILS ABSOLUTE AUTO 0.05 10^3/uL (0.00-0.50); BASOPHILS PERCENT AUTO 1.1 % (0-1); EOSINOPHILS PERCENT AUTO 2.2 % (0-6); HEMATOCRIT 35.9 % (37.0-47.0); LYMPHOCYTES ABSOLUTE AUTO 1.94 10^3/uL (0.60-5.00); LYMPHOCYTES PERCENT AUTO 43.2 % (24-44); MEAN CORPUSCULAR HEMOGLOBIN 31.1 pg (27.0-32.0); MEAN CORPUSCULAR HGB CONC 33.4 g/dL (32.0-36.0); MONOCYTES ABSOLUTE AUTO 0.29 10^3/uL (0.00-1.50); MONOCYTES PERCENT AUTO 6.5 % (0-10); NEUTROPHILS ABSOLUTE AUTO 2.11 x10^3/uL (1.80-8.00); PLATELET COUNT,PLT 288 10^3/uL (150-400); RED BLOOD CELL COUNT 3.86 x10^6/uL (4.00-5.50); WHITE BLOOD CELL COUNT,WBC 4.5 10^3/uL (4.0-11.0)
[2023-05-20 11:09] LABS: ALBUMIN 3.7 g/dL (3.4-5.0); BILIRUBIN TOTAL 0.3 mg/dL (0.0-1.0); CALCIUM 8.8 mg/dL (8.4-10.1); EST CRCL DRUG DOSING (CG) 62.75 mL/min; POTASSIUM,K 4.2 mEq/L (3.5-5.0); PROTEIN TOTAL,TP 7.1 g/dL (6.4-8.2)
== END 2023-05-20 11:08 | disposition home or self-care (01) ==
LOC: CC.ED 10:34
DX: N93.9 Abnormal uterine and vaginal bleeding, unspecified (principal); Z88.0 Allergy status to penicillin
CPT/HCPCS: 36415; 80053; 85025; 99284

== ENCOUNTER → 2024-06-07 | Day surgery (SDC) | payer MEDICAID ==
[~2024-06-07] MED LIST changes: -Lactated Ringers 1,000 ML IV SCH; -Lidocaine 2% 5 ML SDV ONE; -Phenylephrine 1% 10 MG/ML SDV ONE; +Propofol 200 MG/20 ML SDV ONE
[2024-06-07] MEDS: Lactated Ringers 1,000 ML IV SCH (10:29)
[2024-06-07 12:16] VITALS: BP 110/74; PULSE 76
== END ==
LOC: CC.SDS 10:17
PROVIDERS: ATTEND Family Medicine
DX: K63.5 Polyp of colon (principal); K62.1 Rectal polyp; F32.A Depression, unspecified; K59.00 Constipation, unspecified
CPT/HCPCS: 00811; 45380; J2250; J2704; J3010; J3490; J7120